=== PATIENT | female | born 1945 | race Caucasian/White ===

== ENCOUNTER 2025-01-24 12:56 | Outpatient (CLI) | payer MEDICARE, BC | END 2025-01-24 12:57 | disposition home or self-care (01) | LOC: BICMRI 12:56 | PROVIDERS: ATTEND Physician Assistant | DX: M19.011 Primary osteoarthritis, right shoulder (principal); M25.711 Osteophyte, right shoulder; M25.411 Effusion, right shoulder; S43.401A Unspecified sprain of right shoulder joint, initial encounter; M67.813 Other specified disorders of tendon, right shoulder ==